=== PATIENT | female | born 1945 | race African-American/Black ===

== ENCOUNTER 2016-02-29 06:08 | Day surgery (SDC) | payer OTHER ==
[2016-02-25 12:28] VITALS: BMI 29.2
[2016-02-29] MEDS ORDERED: PROPOFOL 20 ML ONE ×7 (07:21→08:40)
[2016-02-29] MEDS ORDERED: BACITRACIN 3.5 GM OPTHALMIC OINT TUBE ONE (07:26)
[2016-02-29] MEDS ORDERED: POVIDONE-IODINE 5% OPHTHALMIC PREP 30 ML SOLUTION ONE (07:26)
[2016-02-29] MEDS ORDERED: LIDOCAINE 1%-EPI 1:100,000 30 ML MDV IJ ONE (07:26)
[2016-02-29] MEDS ORDERED: BUPIVACAINE HCL/PF 0.5% (5MG/ML) 10 ML VIAL ONE (07:26)
[2016-02-29] MEDS ORDERED: LABETALOL HCL 5 MG/1 ML (100MG/20 ML VIAL) ONE (08:16)
[2016-02-29] MEDS ORDERED: ONDANSETRON 4 MG/2 ML VIAL ONE (08:40)
[2016-02-29] MEDS ORDERED: hydrALAZINE HCL 20 MG/ML VIAL ONE ×2 (08:41)
[2016-02-29] MEDS ORDERED: LACTATED RINGERS SOLUTION 1,000 ML IV SCH (09:15)
[2016-02-29] MEDS ORDERED: ACETAMINOPHEN 500 MG TABLET (FP) PO PRN (10:21)
[2016-02-29] MEDS ORDERED: oxyCODONE HCL 5 MG TABLET PO PRN (10:22)
[2016-02-29] MEDS ORDERED: PROMETHAZINE HCL 25 MG/1 ML VIAL IVPUSH PRN (10:22)
[2016-02-29] MEDS ORDERED: ONDANSETRON 4 MG/2 ML VIAL IVPUSH PRN (10:22)
[2016-02-29 11:30] VITALS: TEMP 98.1
[2016-02-29 11:31] VITALS: BP 121/64; PULSE 66
--- NOTE | 2016-03-01 08:31 | OP ---
DATE OF OPERATION: 02/29/2016 PREOPERATIVE DIAGNOSIS: Involutional ectropion, right lower lid, with medial and lateral canthal laxity. PROCEDURE: 1. Lateral tarsal strip, right lower lid. 2. Medial canthal tendon plication, right lower lid. 3. Punctal inversion with conjunctivoplasty, right lower lid. SURGEON: Colby Cherry MD ANESTHESIA: Local with sedation. COMPLICATIONS: None. ESTIMATED BLOOD LOSS: 1 to 2 mL OPERATIVE REPORT: Patient brought to the operating room, placed on the operating room table, vital signs monitored by Anesthesia. Tetracaine was placed in both eyes. Medial canthal Y was marked in a curvilinear fashion overlying the medial canthal tendon and a lateral canthal tendon line was marked. The patient was given intravenous sedation. Time-out was performed, and a 50/50 mixture of 2% Xylocaine and 1:100,000 epinephrine and 0.5% Marcaine was injected subcutaneously in right lower lid and lateral medial canthus, lateral canthus down to periosteum, lateral third of the upper and lower lids subconjunctivally. Massage was applied. The patient was prepped and draped in a sterile fashion, exposing both eyes. Medial canthal tendon incision was now made in a curvilinear fashion extending from the medial canthal tendon to the medial tarsal plate. This was dissected down to the medial tarsal tendinous junction and the anterior limb of the medial canthal tendon was identified and then the medial canthal tendon was plicated with double-armed 5-0 Prolene, grabbing tarsus at the tarsal tendinous junction, then placing the suture below the orbicularis and then just underneath the anterior limb of the medial canthal tendon. This was reinforced with 7-0 Vicryl sutures as lasso sutures. It was then tied, preventing lateralization of the punctum without advancing it nasally. The wound was irrigated, the knot was buried and the wound was closed with running 6-0 plain suture. A lateral canthal incision was made with a 15 blade. This was carried through skin and subcutaneous tissue, carried down to periosteum with a Isanti needle. The inferior joanne of the lateral canthal tendon was then from the wound with sharp dissection. The lid was overlapped at the orbital rim, marked with sterile marking pen, divided between the anterior and posterior midline, and 2-mm excised. Posterior lamella was denuded of epithelium posteriorly and superiorly and it was reattached to the orbital rim with double-armed 5-0 Prolene at the appropriate position internal to the orbital rim, reinforced with two 6-0 Vicryl lasso sutures. The lateral canthal angle was reformed with a 5-0 chromic buried through the barksdale line in the upper and lower lid. Prior to tying the Prolene at the lateral canthus, the lid was everted, subpunctal adrian of conjunctival retractors was excised with a Isanti needle and then this wound was closed with double-armed 5-0 chromic grabbing inferior, retracted superior tarsal conjunctiva and inferior conjunctiva, ascending full thickness through the nasal island. The Prolene was now tied. The excess tarsal strip was overlapped with 0 Prolene and tied with a 5-0 chromic. Irrigation was performed with antibiotics. The wound was closed with running and interrupted 6-0 plain suture. The punctal everting suture was now tied, inverting the punctum. Bacitracin was placed on all the sutures and in the eye, and the patient was taken to recovery room in stable condition. COLBY CHERRY M.D. [id number]
== END 2016-02-29 11:15 | disposition home or self-care (01) ==
LOC: FASU 06:08
PROVIDERS: ATTEND Ophthalmology
PROC: 08SN0ZZ Reposition Right Upper Eyelid, Open Approach (ICD-10-PCS; 2016-02-29)
PROC: 08U007Z Supplement of Right Eye with Autologous Tissue Substitute, Open Approach (ICD-10-PCS; 2016-02-29)
PROC: 08BQ0ZZ Excision of Right Lower Eyelid, Open Approach (ICD-10-PCS; principal; 2016-02-29 08:16)
DX: H02.102 Unspecified ectropion of right lower eyelid (principal); H02.89 Other specified disorders of eyelid
CPT/HCPCS: 94760

== ENCOUNTER 2017-01-18 06:46 | Day surgery (SDC) | payer OTHER ==
--- NOTE | 2017-01-15 10:01 | HP ---
Admitting History and Physical - Primary Care Physician PCP: Tj Michael - Admission Chief Complaint: right breast cancer History of Present Illness: 71 year old postmenapausal female with family H/O breast cancer who was found to have an abnormal mammogram 11/2016 showing 1.5 cm irregular density right breast upper outer axillary tail also sen on US. 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 Breast MRI showed 12/2016 showed right breast cancer at 12:00 and a suspicious enhancement central ant third right breast . MRI core bx 12/2016 right breast showed benign findings. History Source: Patient Limitations to Obtaining History: No Limitations - Past Medical History Cardiovascular: Yes: HTN, Hyperlipdemia - Past Surgical History Past Surgical History: Yes: Hysterectomy (ANA at 36 due to fibroids.), Joint Replacement (left totla hip replacement 2012) Additional Past Surgical History: right breast core bx benign 2014 - Smoking History Smoking history: Former smoker Have you smoked in the past 12 months: No If you are a former smoker, when did you quit?: 2012/WAS A SOCIAL SMOKER - Alcohol/Substance Use Hx Alcohol Use: Yes (1 WKLY) Home Medications - Allergies Allergies/Adverse Reactions: Allergies Allergy/AdvReac Type Severity Reaction Status Date / Time No Known Drug Allergies Allergy Verified 02/25/16 12:05 - Home Medications Home Medications: Ambulatory Orders Ascorbate Calcium [Vitamin C] 500 mg PO DAILY 02/25/16 Cholecalciferol (Vitamin D3) [Vitamin D3] 2,000 unit PO DAILY 02/25/16 Clonidine HCl 0.1 mg PO BID 02/25/16 Diltiazem HCl [Diltiazem 24Hr Cd] 120 mg PO DAILY 02/25/16 Folic Acid 0.4 mg PO DAILY 02/25/16 Gabapentin 100 mg PO TID 02/25/16 Hydrochlorothiazide [Hctz -] 12.5 mg PO DAILY 02/25/16 Lisinopril [Prinivil -] 40 mg PO DAILY 02/25/16 Multivit-Min/Folic Acid/Vit K1 [Multi For Her 50 Plus Softgel] 400 mcg PO DAILY 02/25/16 Naproxen Sodium [Aleve] 220 mg PO HS 02/25/16 Potassium 99 mg PO DAILY 02/25/16 Pravastatin Sodium [Pravachol] 40 mg PO HS 02/25/16 Dextromethorphn/Acetaminoph/Cp [Coricidin Hbp Flu Tablet] 1 each PO ASDIR PRN Family Disease History - Family Disease History Other Family History: mat [place] breast ca Physical Examination Constitutional: Yes: Well Nourished Breast(s): Yes: Other (D cup ptotic breasts no palpable right or left breast masses felt , no adenopathy bilaterally post bx changes right breast) Problem List - Problems (1) Breast cancer, right Code(s): C50.911 - MALIGNANT NEOPLASM OF UNSP SITE OF RIGHT FEMALE BREAST Qualifiers: Breast location: upper outer quadrant of breast Patient sex: female Assessment/Plan Right breast wide excision , needle localization, lymphoscintogram, sentenel node bioipsy ,posssible axillary node dissection
[2017-01-16 12:17] VITALS: BMI 26.5
[2017-01-18] MEDS ORDERED: ISOSULFAN BLUE 10 MG/ML VIAL SQ ONE (11:48)
[2017-01-18] MEDS ORDERED: MIDAZOLAM HCL 2 MG/2 ML SINGLE DOSE VIAL ONE (11:55)
[2017-01-18] MEDS ORDERED: PROPOFOL 20 ML ONE ×2 (12:01→13:13)
[2017-01-18] MEDS ORDERED: ceFAZolin SODIUM 1 GM VIAL ONE (12:12)
[2017-01-18] MEDS ORDERED: DEXAMETHASONE SOD PHOSPHATE 4 MG/1 ML VIAL ONE (12:14)
[2017-01-18] MEDS ORDERED: ONDANSETRON 4 MG/2 ML VIAL ONE (12:14)
[2017-01-18] MEDS ORDERED: BUPIVACAINE HCL/PF 0.25% (2.5MG/ML) 10 ML VIAL IJ ONE ×2 (12:43→13:46)
[2017-01-18] MEDS ORDERED: KETOROLAC TROMETHAMINE 30 MG/1 ML VIAL ONE (13:29)
[2017-01-18] MEDS ORDERED: GUM MASTIC/STORAX/MSAL/ALCOHOL 1 DRP DROPSBTL MC ONE (13:48)
[2017-01-18] MEDS ORDERED: KETOROLAC TROMETHAMINE 30 MG/1 ML VIAL IVPUSH PRN (14:04)
[2017-01-18] MEDS ORDERED: ONDANSETRON 4 MG/2 ML VIAL IVPUSH PRN (14:04)
[2017-01-18] MEDS ORDERED: oxyCODONE HCL 5 MG TABLET PO PRN (14:04)
[2017-01-18] MEDS ORDERED: DEXTROSE 5%-0.45% SALINE 1,000 ML IV SCH (14:15)
[2017-01-18 16:44] VITALS: TEMP 98
[2017-01-18 16:50] VITALS: BP 110/65; PULSE 58
--- NOTE | 2017-01-19 15:00 | OP ---
DATE OF OPERATION: 01/18/2017 PREOPERATIVE DIAGNOSIS: Right breast cancer, upper outer quadrant. POSTOPERATIVE DIAGNOSIS: Right breast cancer, upper outer quadrant. PROCEDURE: Right breast partial mastectomy with mammographic needle localization and right axillary sentinel lymph node biopsy. PRIMARY SURGEON: Sarah Michael MD APPLICATION SECURITY ENGINEER: ANJUM Rueda COMPLICATIONS: None. ANESTHESIA: General laryngeal mask airway anesthesia. INDICATION FOR PROCEDURE: Briefly, the patient is a 71-year-old, G2, P1 postmenopausal female of descent with a family history with a paternal great aunt who from breast cancer and mother from gastric cancer. She underwent mammography showing a suspicious density in the high upper outer aspect of the right breast, measuring about 1.5 cm, 13 cm from the nipple, seen on ultrasound. Ultrasound-guided core biopsy showed a high-grade infiltrating ductal cancer which was ER positive, FL negative, and HER2/[place] negative with a Ki67 of 80%. MRI showed some bilateral findings, and she had ultrasound core biopsies of this area which were benign. She required a separate right breast MRI core biopsy because one of the ultrasound biopsies was felt to be discordant, and that biopsy also was benign. She was advised of undergoing a room air breast partial mastectomy, sentinel lymph node biopsy. She was brought in for the procedure on January 18, 2017. She underwent the needle localization and lymphoscintigraphy at [facility], then was brought to the [facility]. In the holding area, site verification was made, and informed consent was obtained. DESCRIPTION OF PROCEDURE: She was brought into the operating room, laid on the OR table in a supine position. The right breast was sterilely prepped and draped in the usual fashion with the right arm prepped in the field. She underwent general laryngeal mask airway anesthesia. Next, 3 mL of Lymphazurin blue were injected intradermally and peritumorally around the needle localization site, and massage was instituted. The sentinel lymph node biopsy was first performed. An incision was made just below the hair-bearing area of the right axilla, and dissection was undertaken. No blue lymphatics were seen. However, 3 hot lymph nodes were easily found in the level I region of the right axilla. The first sentinel lymph node had a 10-second gamma count of 3545, the second sentinel lymph node had a 10-second gamma count of 4001, the third sentinel lymph node had a 10-second gamma count of 687. The background count after removal of these 3 nodes was 157. These were sent down to Pathology in formalin for permanent section. Hemostasis was achieved, and the axillary wound was closed using interrupted 2-0 plain suture to close the subcutaneous tissue. The skin was closed using interrupted 3-0 deep dermal Vicryl suture and a running 4-0 subcuticular Monocryl suture. At this point, the wide excision was undertaken around the needle localization site. A small ellipse of skin was removed with the wide excision, and about a 4-cm incision was made. Dissection was undertaken around the needle localization, and the breast tissue was completely removed from around the wire all the way down to the pectoralis major muscle. The specimen was removed with the wire in the middle of the specimen, and it was oriented with a long lateral, short superior suture. Specimen radiographs showed removal of the calcifications and clip in question. Separate margins were then taken on the superior, inferior, medial, lateral, and deep aspects with sutures marking the biopsy cavity side. All specimens were sent down to Pathology in formalin. Hemostasis was achieved. A tissue transfer closure was then accomplished by undermining the breast tissue and sewing in about a 4 x 3 cm area of breast tissue to close the defect. The breast tissue was reapproximated using 2-0 plain suture. The skin was closed using interrupted 3-0 deep dermal Vicryl suture and a running 4-0 subcuticular Biosyn suture. Mastisol and Steri-Strips were applied over the wounds and a compressive dressing placed over this. All sponge and needle counts were correct at the end of the case, and estimated blood loss was minimal. The laryngeal mask airway tube was removed, and the patient will be recovered in the postanesthesia care unit and then discharged home the same day once discharge criteria are met. She is to follow up in the office in 1 week for a formal wound pathology check. SARAH MICHAEL M.D. [id number]
--- NOTE | 2017-01-23 11:56 | PATH ---
Surgical Pathology Report Patient Name: MONROE HERNÁNDEZ [facility]. Rec. #: [id number] /Age/Gender: 1945 (Age: 71) / F Account: [id number] Location: REPLACED BY [facility] Taken: 01/18/2017 Received: 01/18/2017 Reported: 01/23/2017 Physicians: Tj Michael M.D. Specimen(s) Received A: RIGHT AXILLARY SENTINEL LYMPH NODE #1 B: RIGHT AXILLARY SENTINEL LYMPH NODE #2 C: RIGHT AXILLARY SENTINEL LYMPH NODE #3 D: RIGHT BREAST POSTERIOR MARGIN E: RIGHT BREAST MEDIAL MARGIN F: RIGHT BREAST LATERAL MARGIN G: RIGHT BREAST INFERIOR MARGIN H: RIGHT BREAST SUPERIOR MARGIN I: RIGHT BREAST WIDE EXCISION Clinical History Invasive Final Diagnosis A. LYMPH NODE, RIGHT AXILLARY SENTINEL NODE #1, EXCISION: ONE BENIGN LYMPH NODE (0/1) BY STANDARD HEMATOXYLIN AND EOSIN STAIN (MULTIPLE LEVELS EXAMINED). B. LYMPH NODE, RIGHT AXILLARY SENTINEL NODE #2, EXCISION: ONE BENIGN LYMPH NODE (0/1) BY STANDARD HEMATOXYLIN AND EOSIN STAIN (MULTIPLE LEVELS EXAMINED). C. LYMPH NODE, RIGHT AXILLARY SENTINEL NODE #3, EXCISION: ONE BENIGN LYMPH NODE (0/1) BY STANDARD HEMATOXYLIN AND EOSIN STAIN (MULTIPLE LEVELS EXAMINED). D. RIGHT BREAST POSTERIOR MARGIN, EXCISION: BENIGN SKELETAL MUSCLE AND ADIPOSE TISSUE. E. RIGHT BREAST, MEDIAL MARGIN, EXCISION: BENIGN BREAST TISSUE. F. RIGHT BREAST, LATERAL MARGIN, EXCISION: BENIGN BREAST TISSUE WITH FOCAL ADENOSIS. G. RIGHT BREAST, INFERIOR MARGIN, EXCISION: BENIGN BREAST TISSUE WITH FIBROCYSTIC CHANGES INCLUDING SCLEROSING ADENOSIS, STROMAL FIBROSIS, AND DUCTAL DILATATION. H. RIGHT BREAST, SUPERIOR MARGIN, EXCISION: BENIGN FIBROFATTY TISSUE. I. RIGHT BREAST, WIDE EXCISION WITH WIRE LOCALIZATION: POORLY DIFFERENTIATED INVASIVE DUCTAL CARCINOMA, ISABEL GRADE 3 OF 3 (TUBULE SCORE 3 OF 3, NUCLEAR GRADE 3 OF 3, MITOTIC 3 OF 3, TOTAL 5 OF 9), MEASURING 0.9 CM IN GREATEST DIMENSION, WITH ASSOCIATED CALCIFICATION. NO DUCTAL CARCINOMA IN SITU IDENTIFIED. INVASIVE CARCINOMA IS 6 MM FROM THE DEEP ASPECT OF THIS SPECIMEN AND 7 MM FROM THE SUPERIOR ASPECT OF THIS SPECIMEN (SEE SPECIMEN D THROUGH SPECIMEN H FOR FINAL MARGINS). NO LYMPH VASCULAR INVASION IDENTIFIED. CHANGES CONSISTENT WITH PRIOR BIOPSY SITE PRESENT. UNREMARKABLE SKIN PRESENT. REMAINING BREAST TISSUE SHOWS FATTY BREAST TISSUE WITH FOCAL ATYPICAL ADENOSIS, AND FOCAL FIBROCYSTIC CHANGES INCLUDING STROMAL FIBROSIS AND DUCTAL DILATATION. Comment: Immunohistochemical stains for smooth muscle myosin heavy chain and p63 show loss of myoepithelial cell layer in the carcinoma. Also see prior Slide Reviews [id number] and [id number]. Comments Breast Invasive Carcinoma: Surgical Pathology Cancer Case Summary Based on AJCC/UICC TNM, 7th edition Procedure _X__ Excision with image-guided localization Lymph Node Sampling (select all that apply) (required only if lymph nodes are present in the specimen) _X__ [place] lymph node(s) Specimen Laterality _X__ Right Tumor Size: Size of Largest Invasive Carcinoma Greatest dimension of largest focus of invasion over 1 mm: 9 mm Tumor Focality _X__ Single focus of invasive carcinoma Macroscopic and Microscopic Extent of Tumor Skin _X__ Invasive carcinoma does not invade into the dermis or epidermis Nipple _X__ Not applicable (excisions less than total mastectomy) Ductal Carcinoma In Situ (DCIS) _X__ No DCIS is present Histologic Type of Invasive Carcinoma : _X__ Invasive carcinoma of no special type (ductal, not otherwise specified) Histologic Grade: (Isabel Histologic Score) Tubular Differentiation _X__ Score 3 Nuclear Pleomorphism _X__ Score 3 Mitotic Rate _X__ Score 3 Overall Grade _X__ Grade 3: scores of 8 or 9 (poorly differentiated) Margins _X__ Margins uninvolved by invasive carcinoma (required only if residual invasive carcinoma is present in specimen) Distance from closest margin: Cannot be determined. Carcinoma is 6 mm from the deep aspect of the wide excision and 7 mm from the superior aspect of the wide excision, but is not present in the final margins (Specimen D through Specimen H) Lymph-Vascular Invasion _X__ Not identified Lymph Nodes Total number of lymph nodes examined (sentinel and nonsentinel): 3 Number of sentinel lymph nodes examined: 3 Number of lymph nodes with macrometastases ( > 2 mm): 0 Number of lymph nodes with micrometastases (>0.2 mm to 2 mm and/or >200cells):0 Number of lymph nodes with isolated tumor cells (=0.2 mm and =200 cells): 0 Extranodal Extension _X__ Not applicable Pathologic Staging (pTNM) Primary Tumor (Invasive Carcinoma): pT1b Regional Lymph Nodes (pN): pN0(sn) Biomarker Studies Results of ER and WA studies performed on this specimen (block I1) at [facility] are as follows: ER (clone [id number] mouse monoclonal antibody by [employer]): ~2% nuclear staining with weak intensity (Positive). WA (clone16 mouse monoclonal antibody by [employer]) : 0% nuclear staining (Negative). Results of Her2 (IHC) & Ki-67 studies performed on this specimen (block I1) at [place], [place] ( [id number]) are as follows: Her2 IHC (EP3 from [employer], formerly known as [id number], using [employer] Polymer Refine detection kit): 0 NEGATIVE Ki67: ~60% (High proliferative index) Positive and negative controls (internal if applicable) show appropriate results. Formalin fixation and cold ischemic times are within current ASCO/CAP recommendations for ER, WA and Her2 testing. Electronically Signed Nicholas Vargas M.D. Gross Description A. Received in formalin labeled "right axillary sentinel lymph node #1," is a 1.4 x 1.0 x 0.9 cm gonsalez, irregular lymph node with attached fat. The specimen is trisected and entirely submitted in one cassette. B. Received in formalin labeled "right axillary sentinel lymph node #2," is a 1.2 x 0.9 x 0.2 cm portion of yellow, lobulated adipose tissue containing a lymph node. The specimen is submitted in toto in one cassette. C. Received in formalin labeled "right maxillary sentinel lymph node #3," is a 0.8 x 0.7 x 0.2 cm gonsalez, irregular lymph node with attached fat. The specimen is submitted in toto in one cassette. D. Received in formalin labeled "right breast posterior margin," is a 1.7 x 1.1 x 0.7 cm irregular portion of fibroadipose tissue with a suture marking the biopsy cavity side, per the surgeon. The new margin is inked blue and the specimen is serially sectioned. The specimen is entirely submitted in 2 cassettes. E. Received in formalin labeled "right breast medial margin," is a 1.8 x 1.5 x 0.7 cm irregular portion of fibroadipose tissue with a suture marking the biopsy cavity side, per the surgeon. The new margin is inked blue and the specimen is serially sectioned. The specimen is entirely submitted in 2 cassettes. F. Received in formalin labeled "right breast lateral margin," is a 2.6 x 2.4 x 0.9 cm irregular portion of fibroadipose tissue with a suture marking the biopsy cavity side, per the surgeon. The new margin is inked blue and the specimen is serially sectioned. The specimen is entirely submitted in 3 cassettes. G. Received in formalin labeled "right breast inferior margin," is a 1.8 x 1.5 x 1.3 cm irregular portion of fibroadipose tissue with a suture marking the biopsy cavity side, per the surgeon. The new margin is inked blue and the specimen is serially sectioned. The specimen is entirely submitted in 2 cassettes. H. Received in formalin labeled "right breast superior margin," is a 2.0 x 1.7 x 1.3 cm irregular portion of fibroadipose tissue with a suture marking the biopsy cavity side, per the surgeon. The new margin is inked blue and the specimen is serially sectioned. The specimen is entirely submitted in 2 cassettes. I. Received in formalin, labeled "right breast wide excision," is a 5.5 x 5.5 x 4.7 cm. gonsalez-yellow, irregular, portion of fibroadipose tissue with a needle localization wire present. There is a short suture marking the superior aspect and a long suture marking the lateral aspect, per the surgeon. The anterior surface displays a 3.5 x 0.8 cm gonsalez, elliptical, unremarkable portion of skin. The specimen is inked as follows: Superior blue; inferior green; the lateral red; medial yellow; deep black. The specimen is serially sectioned from lateral to medial. Sectioning reveals a 1.1 x 1.0 x 1.0 cm gonsalez, indurated mass at 0.6 cm from the deep margin. The mass is 0.7 cm from the superior margin. The remaining margins appear clear of the mass. Gas Line Repairer sections are submitted in 7 cassettes as follows: 1-full face section of mass with superior and deep margins; 5-8-lobjwttzac mass (each with superior and deep margins); 4-skin; 5-inferior margin; 6-lateral margin; 7-medial margin. Time to formalin fixation: 7 minutes Total formalin fixation time: Approximately 29 hours. 01/19/201701/19/2017
== END 2017-01-18 16:15 | disposition home or self-care (01) ==
LOC: FASU 06:46
PROVIDERS: ATTEND Surgery Surgical Oncology
PROC: 0HBT0ZZ Excision of Right Breast, Open Approach (ICD-10-PCS; principal; 2017-01-18 12:27)
DX: C50.411 Malignant neoplasm of upper-outer quadrant of right female breast (principal)
CPT/HCPCS: 19281; 78195-TC; 88307-TC; 88341-TC; 88342-TC; 94760; A9541